=== PATIENT | female | born 1970 | race Caucasian/White ===

== ENCOUNTER 2022-09-26 18:20 | Emergency (ER) | payer OTHER ==
[~2022-09-26] VITALS: Ht 152.4 cm; Wt 82.0 kg
[2022-09-26 18:27] VITALS: O2SAT 100
[2022-09-26 18:49] LABS: BASOPHILS % 0.7 % (0.0-2.0); EOSINOPHILS % 1.2 % (0.0-5.0); HEMATOCRIT. 42.8 % (36.0-48.0); LYMPHOCYTES % 34.6 % (20.0-50.0); MEAN CORPUSCULAR HEMOGLOBIN 29.2 pg (28.0-32.0); MEAN CORPUSCULAR HGB CONC 32.7 g/dL (31.0-37.0); MEAN CORPUSCULAR VOLUME 89.1 fL (81.0-99.0); MEAN PLATELET VOLUME 9.6 fl (7.4-10.4); MONOCYTES % 11.2 % (2.0-8.0); NEUTROPHILS % 52.3 % (40.0-76.0); PLATELET 235 x1000/uL (130-400); RED CELL DISTRIBUTION WIDTH 13.4 % (11.6-14.6); WHITE BLOOD COUNT 7.4 x1000/uL (4.5-11.0)
[2022-09-26 19:11] LABS: ALANINE AMINOTRANSFERASE 52 IU/L (13-61); ASPARTATE AMINOTRANSFERASE 23 IU/L (15-37); BILIRUBIN TOTAL 0.5 mg/dL (0.1-1.0); CALCIUM 8.8 mg/dL (8.5-10.1); CARBON DIOXIDE 25 mEq/L (21-32); CHLORIDE 106 mEq/L (98-107); CREATININE 0.8 mg/dL (0.6-1.3); GLUCOSE 136 mg/dL (70-105); INDEX HEMOLYSI 1 (1-3); INDEX ICTERIC 1 (1-4); INDEX LIPEMIC 1 (1-3); POTASSIUM 3.5 mEq/L (3.5-5.1); PROTEIN TOTAL 8.5 g/dL (6.0-8.3); SODIUM 138 mEq/L (136-145); UREA NITROGEN BLOOD 7 mg/dL (7-21)
[2022-09-26] MEDS ORDERED: MECLIZINE 25MG TABLET PO ONE (20:00)
[2022-09-26] MEDS ORDERED: IBUPROFEN 400MG TABLET PO ONE (20:00)
[2022-09-26] MEDS ORDERED: ACETAMINOPHEN 325MG TABLET PO ONE (20:00)
[2022-09-26 20:07] LABS: CLARITY URINE CLEAR (CLEAR); COLOR URINE YELLOW (YELLOW); GLUCOSE URINE NEGATIVE (NEGATIVE); KETONES URINE NEGATIVE (NEGATIVE); LEUKOCYTE ESTERASE URINE NEGATIVE (NEGATIVE); NITRITE URINE NEGATIVE (NEGATIVE); OCCULT BLOOD URINE NEGATIVE (NEGATIVE); PROTEIN URINE NEGATIVE (NEGATIVE); SPECIFIC GRAVITY URINE 1.003 (1.005-1.030); UROBILINOGEN URINE 0.2 E.U./dL (0.2-1.0)
[2022-09-26 20:09] LABS: TROPONIN I HIGH SENSITIVITY 5 ng/L (<54)
[2022-09-26] MEDS ORDERED: MECLIZINE 12.5MG TABLET PO NR (20:15)
[2022-09-26] MEDS ORDERED: MECL-159 PO (22:01)
[2022-09-26 22:21] VITALS: BP 132/76; PULSE 92; RESP 20; TEMP 98.3
== END 2022-09-26 22:22 | disposition home or self-care (01) ==
LOC: ER 18:20
DX: H81.13 Benign paroxysmal vertigo, bilateral (principal); R51.9 Headache, unspecified; M79.89 Other specified soft tissue disorders; I10 Essential (primary) hypertension; Z98.890 Other specified postprocedural states
CPT/HCPCS: 99285; 93970; 71045; 80053; 81003; 85025; 84484; 36415; 93005; J8597

== ENCOUNTER 2023-04-27 14:01 | Emergency (ER) | payer OTHER ==
[~2023-04-27] VITALS: Ht 160 cm; Wt 80.0 kg
[~2023-04-27 14:01] MED LIST: MECL-299 PO
[2023-04-27 14:11] VITALS: O2SAT 98
[2023-04-27 14:27] LABS: BASOPHILS % 0.7 % (0.0-2.0); EOSINOPHILS % 1.3 % (0.0-5.0); HEMATOCRIT. 43.8 % (36.0-48.0); HEMOGLOBIN. 14.5 g/dL (12.0-16.0); LYMPHOCYTES % 29.3 % (20.0-50.0); MEAN CORPUSCULAR HEMOGLOBIN 29.3 pg (28.0-32.0); MEAN CORPUSCULAR HGB CONC 33.2 g/dL (31.0-37.0); MEAN CORPUSCULAR VOLUME 88.3 fL (81.0-99.0); MEAN PLATELET VOLUME 9.6 fl (7.4-10.4); MONOCYTES % 8.3 % (2.0-8.0); NEUTROPHILS % 60.4 % (40.0-76.0); PLATELET 212 x1000/uL (130-400); RED BLOOD CELL COUNT 4.96 mill/uL (4.2-5.4); WHITE BLOOD COUNT 7.8 x1000/uL (4.5-11.0)
[2023-04-27 14:40] LABS: ALANINE AMINOTRANSFERASE 22 IU/L (10-49); ASPARTATE AMINOTRANSFERASE 17 IU/L (<34); BILIRUBIN TOTAL 0.7 mg/dL (0.1-1.0); CALCIUM 9.4 mg/dL (8.7-10.4); CARBON DIOXIDE 27 mEq/L (21-32); CHLORIDE 104 mEq/L (98-107); CREATININE 0.7 mg/dL (0.6-1.0); GLUCOSE 95 mg/dL (70-105); SODIUM 137 mEq/L (136-145); UREA NITROGEN BLOOD 10 mg/dL (9-23)
[2023-04-27 16:12] LABS: TROPONIN I HIGH SENSITIVITY < 4 ng/L (3.0-34)
[2023-04-27] MEDS ORDERED: MECLIZINE 25MG TABLET PO ONE (16:45)
[2023-04-27] MEDS ORDERED: MECL-299 MT (16:52)
[2023-04-27 17:12] VITALS: BP 159/89; PULSE 74; RESP 16; TEMP 98.2
[2023-04-27] MEDS: MECLIZINE 12.5MG TABLET PO NR (17:18)
== END 2023-04-27 17:15 | disposition home or self-care (01) ==
LOC: ER 14:01
DX: H81.10 Benign paroxysmal vertigo, unspecified ear (principal); I10 Essential (primary) hypertension; Z98.890 Other specified postprocedural states
CPT/HCPCS: 99285; 71045; 80053; 83880; 85025; 84484; 36415; 93005; J8597